=== PATIENT | female | born 1975 | race Caucasian/White ===

== ENCOUNTER 2017-04-27 13:03 | Emergency (ER) | payer BC ==
[~2017-04-27 13:03] MED LIST: ALEVE220 MG PO; BEN25 PO; PROAIR HFA INH; VYVANSE70 MG OR; ZYRTEC ALLGY10 MG PO; ZYRTEC-D ALG PO
== END 2017-04-27 13:42 | disposition home or self-care (01) ==
LOC: ER 13:03
DX: M79.605 Pain in left leg (principal); Z91.040 Latex allergy status; Z79.899 Other long term (current) drug therapy
CPT/HCPCS: 99283